=== PATIENT | male | born 1960 | race Caucasian/White ===

== ENCOUNTER 2017-04-16 14:05 | Emergency (ER) | payer BC, SELFPAY ==
[2017-04-16 14:06] VITALS: BP 193/91; PULSE 62; RESP 18; TEMP 36.4; O2SAT 98; BMI 55.0
--- NOTE | 2017-04-16 14:41 | ED.DCSUM_ITS ---
- ER Visit Summary Date of Service: 04/16/17 Chief Complaint: Sent to emergency room by PCP to evaluate bright red blood per rectum History of Present Illness: The patient is a 56 M who presents with bright red blood per rectum that has been intermittent for the past several years. He did have endoscopy performed by Dr. Manjeet Sood, last year. Report was reviewed. It was felt to be secondary to fissure in ano and hemorrhoids. She denies any cardiac restaurant symptoms. Denies any orthostatic symptoms. He denies headache, ocular, visual or auditory symptoms. I trouble speech or swallowing. He denies paresthesia, anesthesia or motor weakness. Physical Examination: Is are marked for an elevated blood pressure 193/91. He is obese with a BMI of 55.1. HEENT is unremarkable. Heart is regular without murmur, gallop or rub. Lungs clear to auscultation. Rectal exam reveals external hemorrhoid. Stool is brown. He does have mild edema of the lower extremities. Test Results: Tests were obtained Emergency Department Course and Treatment: This patient has elevated blood pressures asymptomatic he was started on lisinopril. He states he has an appointment with his primary care physician Dr. Zee next week April 24. He also is for Dr. Saldana since he has had intermittent bleeding for 2-3 years. Treatment Plan: Lisinopril 10 mg and follow appointment with PCP next week and referral to general surgery Disposition: Discharged home with prescription for lisinopril 10 mg Impression: 1. Asymptomatic hypertension new diagnosis 2. Bright red blood per rectum secondary to hemorrhoids This note was generated with [employer] dictation software. It may contain incorrect words, spelling, and punctuation that were not noted in review of the chart prior to signing ED Disposition - Plan for ED Patient: Disposition: Home or Assisted Living Chief Complaint: GI Bleed Instructions: ED Hemorrhoids, ED Hematochezia Stable, ED Hypertension New Begin Tx Prescriptions: Lisinopril [Zestril] 10 mg PO DAILY #30 tab Referrals: Gerry Garcia MD [Primary Care Provider] - [facility] appointment Jonny Saldana MD [STAFF PHYSICIAN] - 1-2 Weeks
[2017-04-16 14:42] VITALS: BP 163/98; PULSE 69; RESP 15; O2SAT 96
== END 2017-04-16 14:46 | disposition home or self-care (01) ==
PROVIDERS: Emergency Provider Emergency Medicine; Family Provider Family Medicine; PCP Family Medicine
DX: K64.4 Residual hemorrhoidal skin tags (principal); I10 Essential (primary) hypertension; R60.0 Localized edema; E66.9 Obesity, unspecified; Z79.84 Long term (current) use of oral hypoglycemic drugs
CPT/HCPCS: 99282

== ENCOUNTER → 2019-02-27 11:32 | Outpatient (CLI) | payer BC, SELFPAY ==
--- NOTE | 2019-02-27 11:32 | RAD_ITS ---
STUDY: X-RAY CHEST REASON FOR EXAM: Male, 58 years old. Cough. Shortness of breath. TECHNIQUE: AP and lateral views of the chest. COMPARISON: None. FINDINGS: There is a 9.7 sided by 8.5 cm soft tissue mass in the left upper mediastinum causing deviation of the trachea towards the right side. There is also thickening of the right paratracheal region. A mass lesion or adenopathy should be ruled out. Scattered calcified granulomas. Mild increased markings at the left lung base suggestive of linear atelectasis and/or scarring. There is no demonstrated pleural abnormality. There is borderline cardiomegaly. Normal visualized pulmonary arteries. There is atherosclerotic tortuosity of the aortic arch and descending thoracic aorta. There are degenerative changes of the visualized thoracic spine. Normal visualized ribs, clavicles, and shoulders. There is no demonstrated abnormality of the visualized soft tissue structures of the upper abdomen. RAD/Chest PA and Lateral IMPRESSION: Soft tissue mass in the left superior mediastinum with the tracheal deviation towards the right side. Widening of the right paratracheal region. Adenopathy should be ruled out. Electronically Signed: Clifford Carrera, at 12:15 EST , Service support ,
== END ==
PROVIDERS: Family Provider Family Medicine; PCP Family Medicine; Referring Provider Physician Assistant; Visit Provider Physician Assistant
DX: R05 Cough (principal)
CPT/HCPCS: 71046

== ENCOUNTER → 2019-04-14 | Outpatient (CLI) | payer BC, SELFPAY ==
[2019-02-27 11:59] VITALS: BMI 55.0
--- NOTE | 2019-04-14 18:29 | STRESSREP ---
Stress Test Report Pharmacologic myocardial perfusion stress test. 58-year-old man for preoperative evaluation for goiter surgery. Medications: Lisinopril, metformin. Stress protocol: Resting EKG demonstrates normal sinus rhythm with a rate of 69 bpm normal intervals are noted resting blood pressures 140/72 mmHg. 0.4 mg of regadenoson was infused per usual protocol followed by rapid intravenous saline flush injection continuous EKG monitoring was performed. The maximum heart rate attained was 95 bpm which was 59% of maximum predicted heart rate the maximum workload was 1 metabolic equivalent. The resting blood pressure was 140/72 with a final blood pressure 138/78. Myocardial perfusion protocol. 15.0 mCi of technetium 99m sestamibi was injected at rest. 0.4 mg of regadenoson was infused per usual protocol. At peak infusion 44.8 mCi of technetium 99m sestamibi was injected stress images were obtained stress and rest images were reconstructed and compared in the short axis vertical long horizontal long axis. Gated images were also obtained Perfusion SPECT analysis: Review of the stress images demonstrate normal uptake of tracer noted in all areas of the myocardium except for the distal anterior wall with reduced perfusion. This is present on the stress and resting images to a similar extent. Anterior breast wall attenuation is likely the etiology. No obvious infarct is noted. Gated SPECT analysis: Gated images were not obtained. Conclusion: Pharmacologic myocardial perfusion stress test with no obvious ischemia noted. Anterior breast wall attenuation is likely affecting the anterior apical wall.
== END | disposition home or self-care (01) ==
LOC: CVS 06:16
PROVIDERS: PCP Family Medicine; Referring Provider Family Medicine; Visit Provider Family Medicine
DX: R94.31 Abnormal electrocardiogram [ECG] [EKG] (principal); R06.02 Shortness of breath
CPT/HCPCS: 78452; 93017; A9500; A4216; J2785